=== PATIENT | female | born 1980 | race Caucasian/White ===

== ENCOUNTER 2021-11-02 01:33 | Emergency (ER) | payer OTHER ==
[~2021-11-02 01:33] MED LIST: NEURONTIN100 MG PO; NORCO 10-325 T1 EACH PO; PHENERGAN25 M1 PO; PRINIVIL20 MG PO; ROBAXIN500 MG PO
[2021-11-02 03:13] LABS: BASOPHIL 0.4 % (0-2); EOSINOPHIL 1.4 % (0-5); HGB 14.4 g/dl (12.5-16.0); LYMPHOCYTE 26.2 % (15-48); MCH 31.2 pg (25.0-31.0); MCHC 34.3 g/dL (32.0-36.0); MCV 91.1 fL (78.0-100.0); MONOCYTE 4.4 % (0-12); MPV 11.4 fL (6.0-9.5); NEUTROPHIL 66.6 % (41-80); NRBC 0; PLT 348 K/uL (150-400); RBC 4.61 M/uL (4.20-5.40); RDW 13.1 % (11.5-14.0); WBC 8.4 K/uL (4.0-10.5)
[2021-11-02 03:25] LABS: ACETAMINOPHEN (TYLENOL) <2.0 ug/mL (10.0-30.0); ALBUMIN 3.8 g/dL (3.4-5.0); ALKALINE PHOSHATASE 115 U/L (46-116); ALT 30 U/L (14-59); AST 30 U/L (15-37); BILIRUBIN - TOTAL 0.1 mg/dL (0.2-1.0); BUN 10 mg/dL (7-18); CHLORIDE 101 mmol/L (98-107); CO2 (BICARBONATE) 28 mmol/L (21-32); CREATININE 0.77 mg/dL (0.51-0.95); GLOBULIN (CALCULATION) 4.2 g/dL; GLUCOSE 101 mg/dL (74-106); LIPASE 140 U/L (73-393); POTASSIUM 2.6 mmol/L (3.5-5.1)
[2021-11-02 03:36] LABS: BILIRUBIN NEGATIVE (NEGATIVE); BLOOD NEGATIVE Ery/uL (NEGATIVE); CLARITY CLEAR (CLEAR); COLOR YELLOW (YELLOW); GLUCOSE (U) NORMAL (NORMAL); LEUKOCYTES NEGATIVE Leu/uL (NEGATIVE); NITRITE NEGATIVE (NEGATIVE); PROTEIN NEGATIVE (NEGATIVE); UROBILINOGEN 0.2 mg/dL (0.2-1.0)
[2021-11-02 03:36] LABS: AMPHETAMINES NEGATIVE (NEGATIVE); BARBITURATES NEGATIVE (NEGATIVE); ECSTASY (MDMA) NEGATIVE (NEGATIVE); MARIJUANA (THC) NEGATIVE (NEGATIVE); METHADONE NEGATIVE (NEGATIVE); OPIATES NEGATIVE (NEGATIVE); OXYCODONE NEGATIVE (NEGATIVE)
[2021-11-02 04:11] LABS: BUN/CREAT RATIO (CALC) 11.7 RATIO; CREATININE 0.77 mg/dL (0.51-0.95); POTASSIUM 2.8 mmol/L (3.5-5.1)
[2021-11-02 05:51] LABS: BUN/CREAT RATIO (CALC) 12.3 RATIO; CREATININE 0.65 mg/dL (0.51-0.95); POTASSIUM 3.3 mmol/L (3.5-5.1)
== END 2021-11-02 06:15 | disposition home or self-care (01) ==
LOC: FER 01:33
PROVIDERS: Internal Medicine
DX: S01.81XA Laceration without foreign body of other part of head, initial encounter (principal); F10.129 Alcohol abuse with intoxication, unspecified; E87.6 Hypokalemia; I10 Essential (primary) hypertension; F17.210 Nicotine dependence, cigarettes, uncomplicated; Z23 Encounter for immunization; Y90.4 Blood alcohol level of 80-99 mg/100 ml; Z79.899 Other long term (current) drug therapy; W22.8XXA Striking against or struck by other objects, initial encounter; Y92.810 Car as the place of occurrence of the external cause
CPT/HCPCS: 36415; 80048; 80053; 80305; 81003; 83690; 85025; 90471; 90715; 96365; 96366; 96375; G0480; J2405; J3475; J3480